=== PATIENT | female | born 1960 | race Caucasian/White ===

== ENCOUNTER → 2016-06-23 | Outpatient (CLI) | payer OTHER ==
--- NOTE | 2016-06-24 07:28 | RADONC ---
RADIATION ONCOLOGY CONSULTATION NOTE DATE: 06/23/2016 CHART NUMBER: [id number]. DIAGNOSIS: Left breast cancer. STAGE: Clinical IA, [id number]. ECOG PERFORMANCE: 0. CONSULTATION NOTE: Ms. 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 HISTORY OF PRESENT ILLNESS: The patient was in her usual state of health until approximately a year ago when she felt a small lump in her left breast. On 03/18/2015, the patient underwent an ultrasound-guided core biopsy of her left breast mass, which measured 2 cm. Pathology revealed an invasive ductal carcinoma, which was low grade. The tumor was found to be estrogen receptor positive, progesterone receptor positive and HER2 equivocal. The patient was treated neoadjuvantly with letrozole for 1 year. On 05/15/2016, the patient underwent lumpectomy and sentinel lymph node biopsy. Pathology revealed a 4.9 cm well-differentiated invasive ductal carcinoma. No lymph vascular invasion was identified. [place] lymph node biopsy of the left axilla showed no evidence of metastatic disease. The margins were found to be positive for malignancy. On 06/08/2016, the patient underwent re-excision of her primary site and no residual carcinoma was seen. She underwent oncotype testing and her recurrence score result was 9 for a 10-year risk of distant recurrences with Miramontes (Tamoxifen) alone of 6%. This was very low risk. The patient therefore has not been recommended to receive chemotherapy and is presenting to us for consideration of postoperative radiation therapy for conservative breast management. PAST MEDICAL HISTORY: The patient's past medical history is positive for arthritis. It is otherwise noncontributory. ALLERGIES: The patient is allergic to latex. SOCIAL HISTORY: The patient has smoked for the past 20 years approximately half-a-pack per day. She drinks alcohol socially. FAMILY HISTORY: The patient's family history is negative for breast cancer or other malignancies. REVIEW OF SYSTEMS: The patient's review of systems is positive for anxiety for which she takes Paxil and has been for 3 years. She has occasional headaches and generalized aches and pains since beginning to letrozole. Review of systems is otherwise noncontributory. Denies nausea, vomiting, fevers, chills, night sweats, diplopia, headaches, anxiety or depression, anorexia, weight loss, visual disturbances, chest pain, urinary or bowel difficulties, bone pain, or neurological problems. PHYSICAL EXAMINATION: The patient is a well-developed, well-nourished, 56-year-old female, in no acute distress. HEENT exam is normocephalic, atraumatic. Extraocular movements are intact. There is no palpable cervical, supraclavicular, infraclavicular, axillary, or inguinal lymphadenopathy present. Lungs are clear to auscultation and percussion. Heart has a regular rate and rhythm. Abdomen is benign with no hepatosplenomegaly, masses, or tenderness. Breast examination reveals no masses or discharge bilaterally. Skeletal examination reveals no tenderness to pressure or percussion of the bony skeleton. Extremities reveal no clubbing, cyanosis, or edema. Neurologic exam is grossly intact, as is the remainder of the physical examination. ASSESSMENT: Clearly the patient is a candidate for external beam radiation therapy and so informed her. I have discussed with the patient in detail the potential benefits as well as possible acute and chronic sequelae of external beam radiation therapy. We discussed logistics of treatment planning, simulation and subsequent fractionated daily radiation treatments. I have scheduled the patient for the next available simulation slot and radiation treatments will begin subsequently. Thank you for allowing us to participate in the care of this very pleasant woman. If I could be of any further assistance or provide you with any information, please free to contact me anytime. cc: *James Dolan DO *Ibeth Kirkpatrick MD
== END ==
LOC: M ONCR 09:30
PROVIDERS: ATTEND Radiology Radiation Oncology
DX: C50.912 Malignant neoplasm of unspecified site of left female breast (principal); Z90.12 Acquired absence of left breast and nipple

== ENCOUNTER 2016-07-13 09:31 | Outpatient (RCR) | payer OTHER ==
--- NOTE | 2016-07-16 05:59 | RADONC ---
RADIATION ONCOLOGY SIMULATION NOTE DATE: 07/13/2016 CHART NUMBER: [id number]. SIMULATION NOTE: Ms. Schultz was taken to the CT scan for CT simulation of her left breast field. CT was accomplished without difficulty or discomfort. Radiation treatment planning is underway and radiation treatments will begin subsequently. An immobilization device was created and will be used throughout the course of treatment. It was created without difficulty or discomfort as well. I was physically present throughout the course of CT simulation.
== END 2016-07-24 ==
LOC: M ONCR 09:31
PROVIDERS: ATTEND Radiology Radiation Oncology
DX: C50.212 Malignant neoplasm of upper-inner quadrant of left female breast (principal)

== ENCOUNTER → 2016-07-13 | Outpatient (CLI) | payer OTHER | LOC: M RAD 08:55 | PROVIDERS: ATTEND Radiology Radiation Oncology | DX: C50.919 Malignant neoplasm of unspecified site of unspecified female breast (principal) ==

== ENCOUNTER 2016-07-27 08:30 | Outpatient (RCR) | payer OTHER ==
--- NOTE | 2016-07-28 08:29 | RADONC ---
RADIATION ONCOLOGY PROGRESS NOTE: DATE: 07/27/2016 CHART NUMBER: [id number]. PROGRESS NOTE: Ms. Schultz is thus far at a dose of 534 cGy to her left breast and was last treated on 07/24/2016. She was not treated today secondary to machine breakdown. As of Wednesday, she had been tolerating her treatments quite well with no difficulties related to her radiation therapy. Radiation as scheduled to resume tomorrow.
--- NOTE | 2016-08-04 07:13 | RADONC ---
RADIATION ONCOLOGY PROGRESS NOTE DATE: 08/03/2016 CHART #: [id number] Ms. Schultz is thus far at a dose of 1602 cGy to her left breast and was last treated on 07/31/2016. She was not treated today secondary to machine breakdown. The patient had been tolerating her treatments quite well with no complaints related to her radiation therapy. REVIEW OF SYSTEMS: The patient's review of systems as of Wednesday was noncontributory. Denies nausea , vomiting, fevers, chills, night sweats, diplopia, headaches, anxiety or depression, anorexia, weight loss, visual disturbances, chest pain, urinary or bowel difficulties, bone pain, or neurological problems. PHYSICAL EXAMINATION The patient's skin on Wednesday was in good condition with no evidence of moist or dry desquamation. The remainder of physical exam for which she was just seen briefly on the treatment machine was unchanged. Ms. Scuhltz is scheduled to resume radiation tomorrow. [facility]
--- NOTE | 2016-08-11 07:48 | RADONC ---
RADIATION ONCOLOGY PROGRESS NOTE DATE: 08/10/2016 CHART NUMBER: [id number] Ms. Schultz is presently at a dose of 2937 cGy to her left breast and is tolerating treatments quite well at this point with no complaints related to her radiation therapy. She is having no breast or bone pain. The patient's review of systems is noncontributory. She denies nausea, vomiting, fevers, chills, night sweats, diplopia, headaches, anxiety or depression, anorexia, weight loss, visual disturbances, chest pain, urinary or bowel difficulties, bone pain, or neurological problems. PHYSICAL EXAMINATION: The patient's skin is in good condition with no evidence of moist or dry desquamation. There is just some erythema present. The remainder of her physical exam remains unchanged. Ms. Schultz is tolerating treatments quite well and radiation will continue as scheduled.
--- NOTE | 2016-08-12 05:20 | RADONC ---
RADIATION ONCOLOGY SIMULATION NOTE DATE: 08/11/2016 CHART NUMBER: [id number]. SIMULATION NOTE: Ms. Schultz was taken to the linear accelerator today for clinical setup of her electron beam left breast boost. Setup was accomplished without difficulty or discomfort. Radiation treatment planning is underway and radiation treatments will begin subsequently. An immobilization device was created and will be used throughout the course of treatment. I was physically present throughout the course of CT simulation.
--- NOTE | 2016-08-18 08:22 | RADONC ---
RADIATION ONCOLOGY PROGRESS NOTE DATE: 08/17/2016 CHART NUMBER: [id number] Ms. Schultz is presently at a dose of 4184 cGy to her left breast primary site and is tolerating treatments quite well at this point with no complaints related to her radiation therapy. She is having no breast or bone pain. The patient's review of systems is noncontributory. She denies nausea, vomiting, fevers, chills, night sweats, diplopia, headaches, anxiety or depression, anorexia, weight loss, visual disturbances, chest pain, urinary or bowel difficulties, bone pain, or neurological problems. PHYSICAL EXAMINATION: The patient's skin is in good condition with no evidence of moist or dry desquamation. There is some erythema present. The remainder of her physical exam remains unchanged. Ms. Schultz is tolerating treatments quite well and radiation will continue as scheduled.
== END 2016-08-23 ==
LOC: M ONCR 08:30
PROVIDERS: ATTEND Radiology Radiation Oncology
DX: C50.212 Malignant neoplasm of upper-inner quadrant of left female breast (principal)

== ENCOUNTER → 2016-07-31 | Outpatient (CLI) | payer OTHER ==
[2016-07-31 16:03] LABS: MEAN CORPUSCULAR HEMOGLOBIN 31.5 pg (27.0-33.0); MEAN CORPUSCULAR VOLUME 92.7 fl (80.0-96.0); RED CELL DISTRIBUTION WIDTH 12.1 % (11.5-14.5); WHITE BLOOD COUNT 5.5 K/mm3 (4.0-10.0)
== END ==
LOC: M LAB 15:18
PROVIDERS: ATTEND Radiology Radiation Oncology
DX: C50.911 Malignant neoplasm of unspecified site of right female breast (principal)

== ENCOUNTER 2016-08-24 14:14 | Outpatient (RCR) | payer OTHER ==
--- NOTE | 2016-08-25 11:11 | RADONC ---
RADIATION ONCOLOGY TREATMENT SUMMARY: DATE OF SERVICE: 08/24/2016 CHART NO: [id number] DIAGNOSIS: Left breast cancer. STAGE: Stage clinical I A, [id number] ECOG PERFORMANCE STATUS: 0 Ms. Schultz is a very pleasant 56-year-old white female with the diagnosis what appears to be a stage I A, [id number], well-differentiated invasive ductal carcinoma of the left breast who presented to us status post 1 year of neoadjuvant letrozole followed by lumpectomy and sentinel lymph node biopsy for consideration of postoperative radiation therapy for conservative breast management and cure. We treated the patient to her left chest wall for a total dose of 4000 cGy delivered in 15 fractions of 266.7 cGy each over 22 elapsed days from 07/23/2016 through 08/14/2016. The patient's left breast was treated on the linear accelerator utilizing a 6 MV photon beam via 3D conformal technique with medial lateral tangential santiago. Following completion of 4005 to the entire left breast, the primary site was boosted for an additional 900 cGy delivered in five fractions of 180 cGy each from 08/17/2016 through 08/24/2016. The primary site boost was treated on a linear accelerator utilizing a 9 MEV electron beam prescribed to the 90% isodose line via an en face technique. This brought the primary site to a total dose of 4900 cGy delivered in 20 fractions over 32 elapsed days from 07/23/2016 through 08/24/2016. Ms. Schultz tolerated her treatments quite well and was able complete therapy as prescribed without interruption. I have scheduled the patient for routine followup in our office in one month's time and she will continue to be followed by her other physicians as well. cc: *James Dolan DO *Ibeth Kirkpatrick MD
== END 2016-09-23 ==
LOC: M ONCR 14:14
PROVIDERS: ATTEND Radiology Radiation Oncology
DX: C50.212 Malignant neoplasm of upper-inner quadrant of left female breast (principal)

== ENCOUNTER → 2016-09-23 | Outpatient (CLI) | payer OTHER ==
--- NOTE | 2016-09-23 15:59 | RADONC ---
RADIATION ONCOLOGY FOLLOWUP NOTE DATE: 09/23/2016 CHART NUMBER: [id number] DIAGNOSIS: Left breast cancer. STAGE: Clinical IA, [id number]. ECOG PERFORMANCE STATUS: 0. FOLLOWUP NOTE: Ms. Schultz is a very pleasant 56-year-old white female with the diagnosis of what appears to be a stage IA, [id number], well-differentiated invasive ductal carcinoma of the left breast who is presenting to us today for routine followup visit 1 month post completion of external beam radiation therapy. The patient presents today reporting that she is doing quite well with no complaints at this time related to her radiation therapy or disease. She has no breast or bone pain. The patient's review of systems is noncontributory. She denies nausea, vomiting, fevers, chills, night sweats, diplopia, headaches, anxiety or depression, anorexia, weight loss, visual disturbances, chest pain, urinary or bowel difficulties, bone pain, or neurological problems. PHYSICAL EXAMINATION: The patient is a well-developed, well-nourished, female in no acute distress. HEENT exam is normocephalic, atraumatic. Extraocular movements are intact. There is no palpable cervical, supraclavicular, infraclavicular, axillary, or inguinal lymphadenopathy present. Lungs are clear to auscultation and percussion. Heart has a regular rate and rhythm. Abdomen is benign with no hepatosplenomegaly, masses, or tenderness. Breast examination reveals no masses or discharge bilaterally. Skeletal examination reveals no tenderness to pressure or percussion of the bony skeleton. Extremities reveal no clubbing, cyanosis, or edema. Neurologic exam is grossly intact, as is the remainder of the physical examination. ASSESSMENT: The patient is clinically TERESA at this time. She is being followed closely by Dr. Kirkpatrick as well as Dr. William. At the patient's request, I am discharging her from our followup except on a as needed basis. Mammograms and other studies will be ordered by her managing physicians. cc: MD James Montes MD Kristine Keeney, MD
== END ==
LOC: M ONCR 14:47
PROVIDERS: ATTEND Radiology Radiation Oncology
DX: C50.912 Malignant neoplasm of unspecified site of left female breast (principal); Z90.12 Acquired absence of left breast and nipple

== ENCOUNTER 2016-11-13 11:37 | Outpatient (RCR) | payer OTHER | END 2016-11-23 | LOC: M PT 11:37 | PROVIDERS: ATTEND Surgery | DX: Z51.89 Encounter for other specified aftercare (principal); I89.0 Lymphedema, not elsewhere classified ==

== ENCOUNTER 2016-12-17 14:15 | Outpatient (RCR) | payer OTHER | END 2016-12-24 | disposition home or self-care (01) | LOC: M PT 14:15 | PROVIDERS: ATTEND Surgery | DX: Z51.89 Encounter for other specified aftercare (principal); I89.0 Lymphedema, not elsewhere classified ==

== ENCOUNTER → 2018-07-14 | Outpatient (CLI) | payer OTHER ==
[~2018-07-14] MED LIST: BIOT1CAP2 PO; CALC1TAB63 PO; LETR2.5T2 PO; PARO40TA2 PO; VITA500046 PO; VITA500C24 PO; VITMTA PO
--- NOTE | 2018-07-15 16:39 | REP ---
Clinical: Lung screening. History of nicotine dependence. Comparison: None Technique: Axial low-dose noncontrast images from the thoracic inlet to the upper abdomen using lung screening technique. Findings: The lung santiago are well-aerated. Mild COPD/emphysematous changes along with mild bronchiectasis noted. Very minimal right apical and left basilar scarring. No consolidation, significant nodule or mass lesion is appreciated. No pleural effusion/reaction or pneumothorax. Tracheobronchial tree is patent. Mediastinum demonstrates mild atherosclerotic changes of the coronary arteries without cardiomegaly. Impression: Lung-RADS category I. No nodule or suspicious abnormality. Mild COPD/emphysematous changes with minimal right apical and bibasilar scarring. Management recommendations include annual low-dose CT evaluation. Electronically Signed by Chencho Frausto MD 07/15/2018 04:31 P
== END ==
LOC: M RAD 15:06
PROVIDERS: ATTEND Internal Medicine Medical Oncology
DX: Z12.2 Encounter for screening for malignant neoplasm of respiratory organs (principal); Z87.891 Personal history of nicotine dependence; J43.9 Emphysema, unspecified; J47.9 Bronchiectasis, uncomplicated; I25.10 Atherosclerotic heart disease of native coronary artery without angina pectoris

== ENCOUNTER → 2019-06-05 | Outpatient (CLI) | payer OTHER ==
[~2019-06-05] MED LIST changes: +NATU1TAB5 PO
== END ==
LOC: M WHC 13:53
PROVIDERS: ATTEND Internal Medicine Hematology & Oncology
DX: M85.80 Other specified disorders of bone density and structure, unspecified site (principal); Z79.811 Long term (current) use of aromatase inhibitors

== ENCOUNTER → 2019-07-11 | Outpatient (CLI) | payer OTHER ==
--- NOTE | 2019-07-11 19:33 | REP ---
Clinical: Lung screening. History smoking. Comparison: 07/14/2018 Technique: Axial low-dose noncontrast images from the thoracic inlet to the upper abdomen using lung screening technique. Findings: The lung santiago are well-aerated and moderate chronic COPD/emphysematous changes with scattered bullae and mild bronchiectasis are again noted. No consolidation, significant nodule or mass lesion is appreciated. No pleural effusion/reaction or pneumothorax. Tracheobronchial tree is patent. Mediastinum demonstrates mild atherosclerotic changes of the coronary arteries without cardiomegaly. Impression: 1. Lung-RADS category I. Chronic COPD/emphysematous changes with minimal bronchiectasis and scarring again noted. No nodule or suspicious abnormality. 2. Low-dose annual surveillance recommended. Electronically Signed by Chencho Frausto MD 07/11/2019 07:24 P
== END ==
LOC: M RAD 16:00
PROVIDERS: ATTEND Internal Medicine Hematology & Oncology
DX: Z12.2 Encounter for screening for malignant neoplasm of respiratory organs (principal); Z87.891 Personal history of nicotine dependence

== ENCOUNTER → 2020-09-13 | Outpatient (CLI) | payer OTHER ==
[~2020-09-13] MED LIST changes: +D31000TA2 PO; +GNP1000C11 PO
--- NOTE | 2020-09-13 15:17 | REP ---
INDICATION: LUNG CANCER SCREENING. COMPARISON: Multiple the latest 07/11/2019 TECHNIQUE: Axial noncontrast images from the thoracic inlet to the upper abdomen using low-dose lung screening technique (LDCT). As per the protocol only lung window images were sent to the read station for interpretation FINDINGS: There is minimal biapical pleuroparenchymal scarring which is stable. Once again, a tiny pleural blebs are noted status quo. There are no new abnormal nodules, masses, or opacities. Grossly, the mediastinum and pulmonary edyta are unchanged. Grossly, the imaged upper abdomen and imaged osseous structures are unchanged. IMPRESSION: Stable lung rads category [address] low-dose screening CT of the lungs <Electronically signed by Morgan Soni > 09/13/20 [id number]
== END ==
LOC: M RAD 14:40
PROVIDERS: ATTEND Internal Medicine Medical Oncology
DX: J98.4 Other disorders of lung (principal)

== ENCOUNTER → 2021-09-15 | Outpatient (CLI) | payer OTHER ==
[~2021-09-15] MED LIST changes: +COLLPOW8 XX; -D31000TA2 PO; +DULO1CAP6 PO; +TRET0.02; +VITA100093 PO
== END ==
LOC: M WHC 13:59
PROVIDERS: ATTEND Internal Medicine Medical Oncology
DX: Z13.820 Encounter for screening for osteoporosis (principal); M85.88 Other specified disorders of bone density and structure, other site; M85.851 Other specified disorders of bone density and structure, right thigh; M85.852 Other specified disorders of bone density and structure, left thigh

== ENCOUNTER → 2021-11-03 | Outpatient (CLI) | payer OTHER | LOC: M RAD 13:44 | PROVIDERS: ATTEND Internal Medicine Medical Oncology | DX: Z12.2 Encounter for screening for malignant neoplasm of respiratory organs (principal); Z87.891 Personal history of nicotine dependence; C50.212 Malignant neoplasm of upper-inner quadrant of left female breast; J44.9 Chronic obstructive pulmonary disease, unspecified ==

== ENCOUNTER → 2021-12-10 | Outpatient (CLI) | payer OTHER ==
[2021-12-10 15:16] VITALS: BP 138/78
== END ==
LOC: M WHCPRO 14:27
PROVIDERS: ATTEND Surgery
DX: C50.212 Malignant neoplasm of upper-inner quadrant of left female breast (principal)
CPT/HCPCS: 19083; 77065; 88305; G0279

== ENCOUNTER → 2021-12-18 | Outpatient (CLI) | payer OTHER ==
[2021-12-18 18:07] LABS: BLOOD UREA NITROGEN 14 MG/DL (7-18); CALCIUM LEVEL 9.5 MG/DL (8.8-10.2); CARBON DIOXIDE LEVEL 29 MEQ/L (21-32); CHLORIDE LEVEL 106 MEQ/L (98-107); CREATININE FOR GFR 0.75 MG/DL (0.55-1.30); GLOMERULAR FILTRATION RATE > 60.0 (>45); GLUCOSE, FASTING 84 MG/DL (70-100); SODIUM LEVEL 138 MEQ/L (136-145)
== END ==
LOC: M PLALAB 14:29
PROVIDERS: ATTEND Surgery
DX: C50.412 Malignant neoplasm of upper-outer quadrant of left female breast (principal)

== ENCOUNTER → 2021-12-25 | Outpatient (CLI) | payer OTHER ==
[~2021-12-25] MED LIST changes: +PROHANCE 279.3MG/ML 5ML VIAL As Ordered ONE
== END ==
LOC: M RAD 15:31
PROVIDERS: ATTEND Surgery
DX: C50.212 Malignant neoplasm of upper-inner quadrant of left female breast (principal)
CPT/HCPCS: A9576; C8908

== ENCOUNTER → 2022-01-01 | Outpatient (CLI) | payer OTHER ==
[~2022-01-01] MED LIST changes: -PROHANCE 279.3MG/ML 5ML VIAL As Ordered ONE
== END ==
LOC: M PLARAD 12:02
PROVIDERS: ATTEND Surgery
DX: C50.412 Malignant neoplasm of upper-outer quadrant of left female breast (principal); R59.9 Enlarged lymph nodes, unspecified
CPT/HCPCS: 78815; A9552

== ENCOUNTER → 2022-01-08 | Outpatient (CLI) | payer OTHER | LOC: M ONCR 14:27 | PROVIDERS: ATTEND General Practice | DX: C50.212 Malignant neoplasm of upper-inner quadrant of left female breast (principal); F41.9 Anxiety disorder, unspecified; F12.90 Cannabis use, unspecified, uncomplicated; Z79.899 Other long term (current) drug therapy; Z80.3 Family history of malignant neoplasm of breast; Z92.3 Personal history of irradiation ==

== ENCOUNTER → 2022-01-15 | Outpatient (CLI) | payer OTHER | LOC: M LABSMTC 11:26 | PROVIDERS: ATTEND Surgery | DX: Z01.818 Encounter for other preprocedural examination (principal); Z11.52 Encounter for screening for COVID-19 ==

== ENCOUNTER 2022-01-20 10:59 | Observation (INO) | payer OTHER ==
[~2022-01-20] VITALS: Ht 160 cm; Wt 47.2 kg
[~2022-01-20 10:59] MED LIST changes: +HEPARIN SOD (PORCINE) 5000UNITS/ML 1ML VIAL/SYRINGE SQ ONE; +NS 1,000 ML IV SCH; +ceFAZolin SOD 2 GM in IV 1 EA IV ONE
[2022-01-20] MEDS ORDERED: LR 1,000 ML IV SCH ×3 (11:15→17:50)
[2022-01-20] MEDS ORDERED: LIDOCAINE 1% SDV 5ML VIAL SC PRN (11:15)
[2022-01-20] MEDS ORDERED: LIDOCAINE 2% 100MG/5ML SDV (FOR ANES.) As Ordered ONE (13:00)
[2022-01-20] MEDS ORDERED: propofoL 200 MG/20 ML VIAL As Ordered ONE (13:00)
[2022-01-20] MEDS ORDERED: ROCURONIUM BROMIDE 50 MG/5 ML VIAL As Ordered ONE (13:00)
[2022-01-20] MEDS ORDERED: fentaNYL 250 MCG/5 ML INJECTION As Ordered ONE (13:03)
[2022-01-20] MEDS ORDERED: MIDAZOLAM INJ 2MG/2ML VIAL (J2250 PER 1MG) As Ordered ONE (13:03)
[2022-01-20] MEDS ORDERED: BUPIVACAINE LIPOSOME/PF 1.3% 20ML VIAL (13.3MG/ML)(EXPAREL) As Ordered ONE (13:56)
[2022-01-20] MEDS ORDERED: dexameTHASONE 4 MG/ML 1ML VIAL (J1100 PER 1MG) As Ordered ONE (14:59)
[2022-01-20] MEDS ORDERED: ONDANSETRON 4MG 2ML VIAL As Ordered ONE (14:59)
[2022-01-20] MEDS ORDERED: ePHEDrine SULFATE 25 MG/5 ML(5MG/ML) SYRINGE As Ordered ONE (15:09)
[2022-01-20] MEDS ORDERED: BUPIVACAINE HCL 0.25% 10ML VIAL As Ordered ONE ×2 (15:09→15:11)
[2022-01-20] MEDS ORDERED: ISOSULFAN BLUE(LYMPHAZURIN) 1% 50MG/5ML VIAL As Ordered ONE (15:09)
[2022-01-20] MEDS ORDERED: SUGAMMADEX SODIUM 500 MG/5 ML VIAL (BRIDION) As Ordered ONE (15:32)
[2022-01-20] MEDS ORDERED: ACETAMINOPHEN 1000MG 100ML IV BTL (OFIRMEV) (J0131 PER 10MG) As Ordered ONE (15:32)
[2022-01-20] MEDS ORDERED: KETOROLAC 60MG 2ML VIAL As Ordered ONE (15:34)
[2022-01-20] MEDS ORDERED: METOCLOPRAMIDE INJ 10MG/2ML VIAL (J2765 PER 1) As Ordered ONE (15:34)
[2022-01-20] MEDS ORDERED: NITROGLYCERIN 2% OINT 1 GM *U/D* PKT As Ordered ONE (16:45)
[2022-01-20 16:53] VITALS: BP 91/53
[2022-01-20] MEDS ORDERED: MORPHINE 2 MG/ML 1ML VIAL IV PRN ×2 (17:15→17:50)
[2022-01-20] MEDS ORDERED: ONDANSETRON 4MG 2ML VIAL IV PRN ×2 (17:15→17:50)
[2022-01-20] MEDS ORDERED: oxyCODONE 5MG TAB PO PRN (17:15)
[2022-01-20] MEDS ORDERED: fentaNYL 100 MCG/2 ML INJECTION IV PRN (17:15)
[2022-01-20] MEDS ORDERED: ACETAMINOPHEN TAB 650MG DOSE (2X325MG) PO PRN (17:50)
[2022-01-20 18:10] VITALS: BP 110/68
[2022-01-20 19:57] VITALS: BP 99/57
[2022-01-20 20:56] VITALS: BP 101/59
[2022-01-20] MEDS: traMADol 50 MG TAB PO PRN (21:12)
[2022-01-20 22:34] VITALS: BP 100/60
[2022-01-20 23:20] VITALS: BP 102/66
[2022-01-21 02:18] VITALS: BP 102/64
[2022-01-21] MEDS: traMADol 50 MG TAB PO PRN ×2 (02:54→10:25)
[2022-01-21 06:24] VITALS: BP 114/69
[2022-01-21 10:00] VITALS: BP 100/55
[2022-01-21] MEDS ORDERED: ROXI1TAB2 PO (11:25)
== END 2022-01-21 11:55 | disposition home or self-care (01) ==
LOC: M SDC 10:59 → M MS5PR 11:00
PROVIDERS: ADMIT Surgery; ATTEND Surgery
DX: D05.12 Intraductal carcinoma in situ of left breast (principal); L90.5 Scar conditions and fibrosis of skin; F17.200 Nicotine dependence, unspecified, uncomplicated; Z91.040 Latex allergy status
CPT/HCPCS: 19305; 36415; 38525; 64450; 78195; 86850; 86900; 86901; 88307; 96360; 96361; A9520; C9290; J0131; J0690; J1100; J1644; J1885; J2250; J2270; J2405; J2765; J3010; Q9968

== ENCOUNTER → 2022-02-26 | Outpatient (CLI) | payer OTHER ==
[~2022-02-26] MED LIST changes: -HEPARIN SOD (PORCINE) 5000UNITS/ML 1ML VIAL/SYRINGE SQ ONE; -NS 1,000 ML IV SCH; +ROXI1TAB2 PO; -ceFAZolin SOD 2 GM in IV 1 EA IV ONE
== END ==
LOC: M WHC 11:29
PROVIDERS: ATTEND Internal Medicine Medical Oncology
DX: R22.1 Localized swelling, mass and lump, neck (principal)

== ENCOUNTER → 2022-06-01 | Outpatient (CLI) | payer OTHER ==
[~2022-06-01] MED LIST changes: +EXEM25TA PO; +ISOVUE-370 76% 100ML VIAL As Ordered ONE
== END ==
LOC: M RAD 15:08
PROVIDERS: ATTEND Otolaryngology
DX: R22.1 Localized swelling, mass and lump, neck (principal); R43.8 Other disturbances of smell and taste; J32.0 Chronic maxillary sinusitis

== ENCOUNTER → 2022-06-17 | Outpatient (REF) | payer OTHER ==
[~2022-06-17] MED LIST changes: -ISOVUE-370 76% 100ML VIAL As Ordered ONE
== END ==
LOC: M SFHCWAGY 17:04
PROVIDERS: ATTEND Nurse Practitioner Family
DX: Z12.4 Encounter for screening for malignant neoplasm of cervix (principal); R87.615 Unsatisfactory cytologic smear of cervix
CPT/HCPCS: 87624; G0123

== ENCOUNTER → 2022-07-03 | Outpatient (REF) | payer OTHER | LOC: M PLALAB 14:14 | PROVIDERS: ATTEND Nurse Practitioner Family | DX: Z12.4 Encounter for screening for malignant neoplasm of cervix (principal) | CPT/HCPCS: 87624; G0123 ==

== ENCOUNTER 2022-07-09 13:40 | Outpatient (RCR) | payer OTHER | END 2022-07-24 | LOC: M PT 13:40 | PROVIDERS: ATTEND Nurse Practitioner Women's Health | DX: I89.0 Lymphedema, not elsewhere classified (principal) ==

== ENCOUNTER → 2022-11-26 | Outpatient (CLI) | payer OTHER | LOC: M WHC 10:40 | PROVIDERS: ATTEND Nurse Practitioner Women's Health | DX: C50.212 Malignant neoplasm of upper-inner quadrant of left female breast (principal) | CPT/HCPCS: 77065; G0279 ==

== ENCOUNTER → 2023-01-29 | Outpatient (CLI) | payer OTHER | LOC: M PLAIMG 13:43 | PROVIDERS: ATTEND Nurse Practitioner | DX: Z12.2 Encounter for screening for malignant neoplasm of respiratory organs (principal); F17.210 Nicotine dependence, cigarettes, uncomplicated; C50.912 Malignant neoplasm of unspecified site of left female breast ==

== ENCOUNTER → 2023-08-05 | Outpatient (CLI) | payer OTHER ==
[~2023-08-05] MED LIST changes: +ISOVUE-370 76% 100ML VIAL As Ordered ONE; +NEPHTAB2 PO
== END ==
LOC: M RAD 11:21
PROVIDERS: ATTEND Nurse Practitioner
DX: C50.919 Malignant neoplasm of unspecified site of unspecified female breast (principal); Z79.899 Other long term (current) drug therapy; R91.8 Other nonspecific abnormal finding of lung field
CPT/HCPCS: 71260; Q9967

== ENCOUNTER → 2023-08-16 | Outpatient (CLI) | payer OTHER ==
[~2023-08-16] MED LIST changes: +ESCITALOPRAM; -ISOVUE-370 76% 100ML VIAL As Ordered ONE
== END ==
LOC: M PLARAD 15:17
PROVIDERS: ATTEND Nurse Practitioner
DX: R91.1 Solitary pulmonary nodule (principal)
CPT/HCPCS: 78815; A9552

== ENCOUNTER → 2023-08-30 | Outpatient (REF) | payer OTHER | LOC: M SFHCWAGY 10:20 | PROVIDERS: ATTEND Nurse Practitioner Family | DX: Z12.4 Encounter for screening for malignant neoplasm of cervix (principal); N95.2 Postmenopausal atrophic vaginitis | CPT/HCPCS: 87624; G0123 ==

== ENCOUNTER → 2023-09-17 | Outpatient (CLI) | payer OTHER ==
[~2023-09-17] MED LIST changes: +LEXA1TAB2
== END ==
LOC: M WHC 11:23
PROVIDERS: ATTEND Nurse Practitioner
DX: Z13.820 Encounter for screening for osteoporosis (principal); Z79.811 Long term (current) use of aromatase inhibitors

== ENCOUNTER → 2023-09-22 | Outpatient (CLI) | payer OTHER | LOC: M PLAIMG 13:32 | PROVIDERS: ATTEND Internal Medicine Pulmonary Disease | DX: R91.8 Other nonspecific abnormal finding of lung field (principal) ==

== ENCOUNTER 2023-09-29 10:51 | Day surgery (SDC) | payer OTHER ==
[~2023-09-29] VITALS: Ht 160 cm; Wt 47.6 kg
[~2023-09-29 10:51] MED LIST changes: +K 10100T PO; -LEXA1TAB2; +LEXA1TAB2 PO; +LIDOCAINE PRES-FREE 2% 10ML AMP INH ONE
[2023-09-29] MEDS: LR 1,000 ML IV SCH (11:42)
[2023-09-29] MEDS ORDERED: ONDANSETRON 4MG 2ML VIAL As Ordered ONE (12:28)
[2023-09-29] MEDS ORDERED: SUGAMMADEX SODIUM 500 MG/5 ML VIAL (BRIDION) As Ordered ONE (12:28)
[2023-09-29] MEDS ORDERED: ROCURONIUM BROMIDE 50MG/5ML VIAL As Ordered ONE (12:28)
[2023-09-29] MEDS ORDERED: propofoL 200 MG/20 ML VIAL As Ordered ONE (12:28)
[2023-09-29] MEDS ORDERED: LIDOCAINE 2% 100MG/5ML SDV (FOR ANES.) As Ordered ONE (12:28)
[2023-09-29] MEDS ORDERED: fentaNYL 100 MCG/2 ML INJECTION As Ordered ONE (12:33)
[2023-09-29] MEDS ORDERED: MIDAZOLAM INJ 2MG/2ML VIAL As Ordered ONE (12:33)
[2023-09-29] MEDS: ALBUTEROL SULFATE 2.5MG/0.5ML INH NEB SOLN INH ONE (13:19)
[2023-09-29] MEDS ORDERED: ACETAMINOPHEN 1000MG 100ML IV BAG As Ordered ONE (13:51)
[2023-09-29] MEDS ORDERED: GLYCOPYRROLATE INJ 0.2 MG/ML 2 ML VIAL As Ordered ONE (14:20)
[2023-09-29] MEDS: EPINEPHrine 1MG/10ML SYRINGE 1.5IN As Ordered ONE (14:20)
[2023-09-29] MEDS: CETACAINE SPRAY 5GM As Ordered ONE (14:20)
[2023-09-29] MEDS ORDERED: ONDANSETRON 4MG 2ML VIAL IV PRN (14:40)
[2023-09-29] MEDS ORDERED: fentaNYL 100 MCG/2 ML INJECTION IV PRN (14:40)
[2023-09-29 15:25] VITALS: BP 135/75; TEMP 97.9; O2SAT 98
== END 2023-09-29 15:52 | disposition home or self-care (01) ==
LOC: M SDC 10:51
PROVIDERS: ATTEND Internal Medicine Pulmonary Disease
DX: C34.12 Malignant neoplasm of upper lobe, left bronchus or lung (principal); Z91.040 Latex allergy status; Z87.891 Personal history of nicotine dependence; Z79.899 Other long term (current) drug therapy
CPT/HCPCS: 31626; 31627; 31628; 31654; 71045; 76000; 88309; 93005; A4648; C1601; J0131; J0171; J1100; J2250; J2405; J3010; S2900

== ENCOUNTER → 2023-11-29 | Outpatient (CLI) | payer OTHER ==
[~2023-11-29] MED LIST changes: -LIDOCAINE PRES-FREE 2% 10ML AMP INH ONE
== END ==
LOC: M WHC 13:58
PROVIDERS: ATTEND Nurse Practitioner Women's Health
DX: C50.212 Malignant neoplasm of upper-inner quadrant of left female breast (principal)

== ENCOUNTER → 2023-11-30 | Outpatient (CLI) | payer OTHER | LOC: M PLARAD 10:22 | PROVIDERS: ATTEND Thoracic Surgery (Cardiothoracic Vascular Surgery) | DX: C34.92 Malignant neoplasm of unspecified part of left bronchus or lung (principal) | CPT/HCPCS: 78815; A9552 ==

== ENCOUNTER → 2024-11-29 | Outpatient (CLI) | payer MEDICARE, OTHER ==
[~2024-11-29] MED LIST changes: +ALBU8.5H; +K2 P1TAB PO; +OYST1TAB PO; +TREL1AER; -TRET0.02; +TRET0.046; +VITA1TAB82 PO; +ZINC50CA4 PO
== END ==
LOC: M WHC 11:20
PROVIDERS: ATTEND Specialist
DX: Z12.31 Encounter for screening mammogram for malignant neoplasm of breast (principal); Z85.3 Personal history of malignant neoplasm of breast; R92.331 Mammographic heterogeneous density, right breast; R59.0 Localized enlarged lymph nodes; Z90.12 Acquired absence of left breast and nipple
CPT/HCPCS: 77065; 77067; G0279

== ENCOUNTER → 2024-12-08 | Outpatient (CLI) | payer MEDICARE, OTHER | LOC: M LAB 17:00 | PROVIDERS: ATTEND Internal Medicine Medical Oncology | DX: C50.919 Malignant neoplasm of unspecified site of unspecified female breast (principal) ==

== ENCOUNTER 2024-12-12 12:18 | Day surgery (SDC) | payer MEDICARE, OTHER ==
[~2024-12-12] VITALS: Ht 157.5 cm; Wt 52.8 kg
[2024-12-12 13:16] VITALS: TEMP 98.1
[2024-12-12 13:39] VITALS: BP 123/63; O2SAT 100
== END 2024-12-12 13:44 | disposition home or self-care (01) ==
LOC: M OPP 12:18
PROVIDERS: ATTEND Surgery
DX: Z12.11 Encounter for screening for malignant neoplasm of colon (principal); K57.30 Diverticulosis of large intestine without perforation or abscess without bleeding; Z91.040 Latex allergy status; Z79.899 Other long term (current) drug therapy